=== PATIENT | female | born 1985 | race Caucasian/White ===

== ENCOUNTER 2024-10-28 10:50 | Emergency (ER) | payer SELFPAY ==
[~2024-10-28] VITALS: Ht 162.5 cm; Wt 113.4 kg
[2024-10-28] MEDS ORDERED: SODIUM CHLORIDE 0.9% 1,000 ML IV ONE (11:25)
[2024-10-28] MEDS ORDERED: Ondansetron Hydrochloride 4 MG/2 ML VIAL IV ONE (11:25)
[2024-10-28 11:41] LABS: BASO % 0.4 % (0.0-1.0); EOS # 0.2 10*3/uL (0.0-0.4); EOS % 2.2 % (1.0-4.0); HEMATOCRIT 25.4 % (37.0-47.0); MEAN CORPUSCULAR HGB 32.7 pg (27.0-31.0); MEAN CORPUSCULAR HGB CONC 32.7 g/dl (33.0-37.0); MEAN PLATELET VOLUME 9.5 fl (9.6-12.3); MONO # 0.6 10*3/uL (0.1-1.0); MONO % 8.7 % (3.0-9.0); NEUT # 5.1 10*3/uL (2.3-7.9); NEUT % 74.8 % (47.0-73.0); NUCLEATED RED BLOOD CELL 0.3 % (0.0-0.0); PLATELET COUNT AUTOMATED 259 10*3/uL (130-400); RED BLOOD COUNT 2.54 10*6/uL (4.10-5.10); RED CELL DISTRI WIDTH 27.8 % (0-14.5); WHITE BLOOD COUNT 6.8 10*3/uL (4.8-10.8)
[2024-10-28 12:04] LABS: BUN 7 mg/dl (9-23); CHLORIDE 101 mmol/L (98-107); FREE T4 1.09 ng/dl (0.89-1.76); POTASSIUM 3.1 mmol/L (3.4-5.1)
[2024-10-28] MEDS ORDERED: POTASSIUM CHLORIDE 20 MEQ TAB PO ONE (12:10)
[2024-10-28] MEDS ORDERED: MAGNESIUM OXIDE 400 MG TAB PO ONE (12:40)
[2024-10-28] MEDS ORDERED: Ondansetron4 MG PO (12:42)
[2024-10-28] MEDS ORDERED: MAGNESIUM400 M1 PO (12:42)
[2024-10-28] MEDS ORDERED: KLOR-CON M2020 ME1 PO (12:42)
== END 2024-10-28 13:01 | disposition home or self-care (01) ==
LOC: ED 10:50
PROVIDERS: Internal Medicine
DX: E87.6 Hypokalemia (principal); E83.42 Hypomagnesemia; R11.2 Nausea with vomiting, unspecified; E86.0 Dehydration; R53.1 Weakness